=== PATIENT | female | born 1995 | race Caucasian/White ===

== ENCOUNTER 2016-12-13 03:30 | Emergency (ER) | payer OTHER ==
[~2016-12-13] VITALS: Ht 160 cm; Wt 54.4 kg
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
--- NOTE | 2016-12-13 03:30 | NUR ---
Patient was BIBA at this time and taken to bed 01 via gurney per EMS. [place] [employer] at bedside.
[2016-12-13] MEDS ORDERED: NACL 0.9% 1,000 ML IV ONE (03:41)
[2016-12-13] MEDS ORDERED: MULTIVITAMIN-12 10 ML, THIAMINE 100 MG, MAGNESIUM SULFATE 50% 2,000 MG, FOLIC ACID 5 MG... IV ONE (03:41)
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
[2016-12-13 03:43] VITALS: BP 144/107
[2016-12-13] MEDS ORDERED: diphenhydrAMINE 50 MG/ML VIAL ONE (03:45)
[2016-12-13] MEDS ORDERED: HALOPERIDOL IM 5 MG/ML VIAL IM ONE (03:45)
[2016-12-13] MEDS ORDERED: diphenhydrAMINE 50 MG/ML VIAL IM ONE (03:45)
[2016-12-13] MEDS ORDERED: HALOPERIDOL IM 5 MG/ML VIAL ONE (03:46)
--- NOTE | 2016-12-13 03:55 | NUR ---
Patients father called; I made it known to him that she will be booked at [place], [facility], and can visit her there.
[2016-12-13] MEDS ORDERED: THIAMINE 200 MG/2 ML VIAL ONE (03:57)
[2016-12-13] MEDS ORDERED: FOLIC ACID 5 MG/ML SYR ONE (03:57)
[2016-12-13] MEDS ORDERED: MULTIVITAMIN-12 10 ML VIAL IV ONE (03:57)
[2016-12-13] MEDS ORDERED: MAGNESIUM SULFATE 50% 1000 MG/2 ML VIAL IV ONE (03:57)
--- NOTE | 2016-12-13 04:00 | NUR ---
LAB AT BEDSIDE.
--- NOTE | 2016-12-13 04:05 | NUR ---
Patients father called again, he requested to s/w an officer; I handed the phone to Officer Chirag.
[2016-12-13] MEDS: HALOPERIDOL IM 5 MG/ML VIAL IM ONE ×2 (04:20→04:36)
--- NOTE | 2016-12-13 05:15 | NUR ---
Patient going to CT via [facility]d/RN.
--- NOTE | 2016-12-13 05:42 | NUR ---
Patient back from CT via [facility]
--- NOTE | 2016-12-13 06:02 | NUR ---
XRAY at bedside.
[2016-12-13 06:49] VITALS: BP 138/81
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
== END 2016-12-13 06:50 ==
LOC: MED 03:30
DX: Z02.89 Encounter for other administrative examinations (principal); S09.90XA Unspecified injury of head, initial encounter; F10.129 Alcohol abuse with intoxication, unspecified; F14.10 Cocaine abuse, uncomplicated; F12.10 Cannabis abuse, uncomplicated; F17.210 Nicotine dependence, cigarettes, uncomplicated; Y08.89XA Assault by other specified means, initial encounter; Y93.89 Activity, other specified; Y92.89 Other specified places as the place of occurrence of the external cause; Y99.8 Other external cause status
CPT/HCPCS: 36415; 70450; 70486; 71010; 80053; 80305; 81001; 81025; 85025; 85610; 85730; 96365; 96366; 96372; 99285; A9153; C1758; G0482; J1200; J1630; J3411; J3475; J3490; J7030; Q0092